=== PATIENT | male | born 1965 | race American Indian/Alaskan Native ===

== ENCOUNTER 2020-07-09 16:03 | Emergency (ER) | payer SELFPAY ==
--- NOTE | 2020-07-09 17:00 | Emergency Department Report ---
ED General Adult HPI - General Chief complaint: Arrhythmia/Palpitations Stated complaint: My defibrillator went off 5 time PUI?: No Time Seen by Provider: 07/09/20 16:42 Source: patient, EMS (Verbal report received from emergency medical services. EMS documentation not available at time of chart dictation ), RN notes reviewed Mode of arrival: Stretcher Limitations: No Limitations - History of Present Illness Initial comments: The patient was evaluated in the emergency department for symptoms described in the history of present illness. He/she was evaluated in the context of the global COVID-19 pandemic, which necessitated consideration that the patient might be at risk for infection with the virus that causes COVID-19. Institutional protocols and algorithms that pertain to the evaluation of patients at risk for COVID-19 are in a state of rapid change based on information released by regulatory bodies including the CDC and federal and state organizations. These policies and algorithms were followed during the mark delgado's care in the emergency department. Please note that these policies, procedures and recommendations changed on a rapid basis. Tear Down Man: Dr. Tyree Acosta Patient is a 55-year-old gentleman, with a history of [employer] defibrillator in situ, placed in 2018, history of SVT status post ablation, currently on Xarelto, for unclear reasons, sarcoid, hypertension, high cholesterol and diabetes. Patient is brought to the hospital today with EMS with a complaint of feeling like his defibrillator has gone off at least 4 or 5 times. The patient endorses compliance with his medications, which include sotalol. He does not take digoxin. He reports that he was in his usual state of health today, washing his car, when he heard the siren or alarm go off in his defibrillator. He reports that prior to this, he was not having any symptoms. He specifically denies antecedent headache, neck pain, chest pain, abdominal pain, shortness of breath, loss of taste and smell. Shortly thereafter, he felt like he was shocked. He also reports that he felt like his heart was racing. He believes he received 4 or 5 shocks in total. He feels like he is back to his baseline at this time. He denies dietary indiscretions, and endorses medication compliance. He has some discomfort over his defibrillator site, but otherwise, denies chest pain, vomiting, diaphoresis, urinary symptoms. -: Sudden Consistency: intermittent Improves with: none Worsens with: none Associated Symptoms: denies other symptoms, other (Palpitations) - Related Data Home Medications Medication Instructions Recorded Confirmed Last Taken Insulin Glargine [Lantus] 40 units SQ QHS 06/12/14 06/12/14 06/11/14 metFORMIN [Glucophage] 1,000 mg PO BID 06/12/14 06/12/14 06/12/14 Previous Rx's Medication Instructions Recorded Last Taken Type Acetaminophen/Codeine 1 tab PO Q6H PRN #14 tab 06/12/14 Unknown Rx [Acetaminophen-Codeine #3 TAB] Cyclobenzaprine [Flexeril 10mg] 10 mg PO BID PRN #10 tablet 06/12/14 Unknown Rx Ibuprofen [Motrin 600 MG tab] 600 mg PO Q8H PRN #10 tablet 06/12/14 Unknown Rx predniSONE [Prednisone] 30 mg PO QDAY #3 day 06/12/14 Unknown Rx Allergies Allergy/AdvReac Type Severity Reaction Status Date / Time Penicillins Allergy Intermediate Vomiting Verified 06/12/14 09:29 ED Review of Systems ROS: Stated complaint: DEFIBRILLATOR GOING OFF Other details as noted in HPI Constitutional: other (Denies loss of taste and smell). denies: fever, malaise, weakness Eyes: denies: eye discharge ENT: denies: epistaxis Respiratory: denies: cough, shortness of breath Cardiovascular: palpitations. denies: chest pain Gastrointestinal: denies: nausea, vomiting, diarrhea Genitourinary: denies: dysuria Musculoskeletal: denies: back pain Neurological: denies: weakness Psychiatric: anxiety Hematological/Lymphatic: denies: easy bleeding ED Past Medical Hx - Past Medical History Hx Diabetes: Yes (type II) Additional medical history: chronic back pain - Surgical History Additional Surgical History: back surgery 10/09/12 - Social History Smoking Status: Never Smoker Substance Use Type: None - Medications Home Medications: Home Medications Medication Instructions Recorded Confirmed Last Taken Type Acetaminophen/Codeine 1 tab PO Q6H PRN #14 tab 06/12/14 Unknown Rx [Acetaminophen-Codeine #3 TAB] Cyclobenzaprine [Flexeril 10mg] 10 mg PO BID PRN #10 tablet 06/12/14 Unknown Rx Ibuprofen [Motrin 600 MG tab] 600 mg PO Q8H PRN #10 tablet 06/12/14 Unknown Rx Insulin Glargine [Lantus] 40 units SQ QHS 06/12/14 06/12/14 06/11/14 History metFORMIN [Glucophage] 1,000 mg PO BID 06/12/14 06/12/14 06/12/14 History predniSONE [Prednisone] 30 mg PO QDAY #3 day 06/12/14 Unknown Rx ED Physical Exam - General Limitations: No Limitations General appearance: alert, in no apparent distress - Head Head exam: Present: atraumatic, normocephalic - Eye Eye exam: Present: normal appearance, EOMI. Absent: nystagmus - ENT ENT exam: Present: normal exam, normal orophraynx, mucous membranes moist, normal external ear exam - Neck Neck exam: Present: normal inspection, full ROM. Absent: tenderness, meningismus - Respiratory Respiratory exam: Present: normal lung sounds bilaterally. Absent: respiratory distress, wheezes, rales, rhonchi, stridor, decreased breath sounds - Cardiovascular Cardiovascular Exam: Present: normal rhythm, tachycardia, normal heart sounds. Absent: bradycardia, irregular rhythm, systolic murmur, diastolic murmur, rubs, gallop - GI/Abdominal GI/Abdominal exam: Present: soft. Absent: distended, tenderness, guarding, rebound, rigid, pulsatile mass - Rectal Rectal exam: Present: deferred - Extremities Exam Extremities exam: Present: normal inspection, full ROM, other (2+ pulses noted in the bilateral upper and lower extremities. There is no palpable cord. negative Homans sign. Muscular compartments are soft. The pelvis is stable.). Absent: pedal edema, calf tenderness - Back Exam Back exam: Present: normal inspection, full ROM. Absent: tenderness, CVA tenderness (R), CVA tenderness (L), paraspinal tenderness, vertebral tenderness - Neurological Exam Neurological exam: Present: alert, other (No facial droop. Tongue midline. Ex traocular movements intact bilaterally. Facial sensation intact to light touch in V1, V2, V3 distribution bilaterally. 5 and a 5 strength in 4 extremities. Sensation intact to light touch in 4 extremities.) - Psychiatric Psychiatric exam: Present: anxious - Skin Skin exam: Present: warm, dry, intact, normal color. Absent: rash ED Course Vital Signs 07/09/20 07/09/20 17:16 19:24 Temperature 98.2 F Pulse Rate 97 H Respiratory 18 Rate Blood Pressure 142/87 O2 Sat by Pulse 97 Oximetry O2 Sat by Pulse 99 Oximetry [ Digit-Finger] - Reevaluation(s) Reevaluation #1: 07/09/20 17:46 Differential diagnosis, including not limited to: SVT, A. fib, A-flutter, ventricular ectopy Electrolyte derangement, thyroid derangement Assessment and plan: 55-year-old gentleman, who is currently on Xarelto, who is not currently tachycardic, tachypneic or hypoxic, who denies DVT and pulmonary embolism risk factors, with a GCS of 15, low risk by Wells criteria for pulmonary embolism, who endorses compliance with medications, with a primary complaint of defibrillator going off 4-5 times. We will check appropriate laboratory studies, EKG, x-ray of the chest. We have reached out to [employer] device automobile sales representative on-call, and have requested emergent device interrogation. Patient denies Covid symptoms. I have explained this plan of care to the patient. He has verbalized understanding, and articulated understanding. He is currently resting comfortably, on his stretcher, talking on his cellular phone, and he does not appear to be in any acute distress. 07/09/20 18:23 Patient in no acute distress. Laboratory studies appreciated. Hypomagnesemia will be addressed. X-ray the chest is pending. Device interrogation is pending at this time. 07/09/20 18:45 Remainder of laboratory studies unremarkable. We are currently awaiting device interrogation. Patient updated on plan of care. He is in no acute distress. X-ray of the chest unremarkable. Reevaluation #2: 07/09/20 18:57 [employer] device automobile sales representative is here at this time. Patient did have episodes of sinus tachycardia, 140, she is suspicious for T wave oversensing. However, the patient did not have a malignant arrhythmia otherwise. Patient currently in sinus, and in no acute distress. 07/09/20 19:21 Final reassessment. Patient in no acute distress. I am not able to get in touch with patient's primary electroless plater, Dr. Tyree Acosta. I contacted the [employer] [facility], and they informed her that the patient does not have [employer] insurance. The patient states he is on an affordable care plan, ass ociated with [employer]. However, I would like to speak to his electroless plater as a courtesy. I do not have a clinical question for her. Patient remains in sinus rhythm. His ICD has been reprogrammed by the [employer] automobile sales representative. As a courtesy, I did offer to speak to my cardiology group on- call for this patient, to arrange close outpatient follow-up, but the patient declined. He states he will be able to get in touch with his electroless plater, and arrange follow-up for Saturday. Patient remains awake, alert, oriented, sober, exhibits decision-making capacity and is free from distracting injury. We have come to this plan together, through shared decision making. Return precautions are reviewed. Patient has articulated understanding. - Consultations Consultation #1: 07/09/20 19:27 Patient's electroless plater, Dr. Acosta, has called me back. I have discussed the patient's history, physical, laboratory studies and EKG findings, and she advises that follow-up within a week would be reasonable, and she is in agreement with this plan of care. Patient updated, and he is agreeable to this plan of care. - Pulse Oximetry Interpretation Digit-Finger Initial Pulse Oximetry Readin O2 Sat by Pulse Oximetry: 99 Actions Taken: none ED Medical Decision Making - Lab Data Result diagrams: 07/09/20 17:20 07/09/20 17:20 Vital Signs 07/09/20 07/09/20 17:16 18:17 Temperature 98.2 F Pulse Rate 97 H Respiratory 18 Rate Blood Pressure 142/87 O2 Sat by Pulse 97 Oximetry O2 Sat by Pulse 99 Oximetry [ Digit-Finger] Lab Results 07/09/20 07/09/20 07/09/20 Range/Units 17:20 17:20 17:20 WBC 5.6 (4.5-11.0) K/mm3 RBC 4.25 (3.65-5.03) M/mm3 Hgb 14.3 (11.8-15.2) gm/dl Hct 41.5 (35.5-45.6) % MCV 98 H (84-94) fl MCH 34 H (28-32) pg MCHC 35 H (32-34) % RDW 14.0 (13.2-15.2) % Plt Count 174 (140-440) K/mm3 Lymph % (Auto) 28.4 (13.4-35.0) % Whitfield % (Auto) 10.6 H (0.0-7.3) % Eos % (Auto) 0.9 (0.0-4.3) % Baso % (Auto) 0.9 (0.0-1.8) % Lymph # (Auto) 1.6 (1.2-5.4) K/mm3 Whitfield # (Auto) 0.6 (0.0-0.8) K/mm3 Eos # (Auto) 0.1 (0.0-0.4) K/mm3 Baso # (Auto) 0.1 (0.0-0.1) K/mm3 Seg Neutrophils % 59.2 (40.0-70.0) % Seg Neutrophils # 3.3 (1.8-7.7) K/mm3 PT 13.1 (12.2-14.9) Sec. INR 1.01 (0.87-1.13) APTT 28.4 (24.2-36.6) Sec. Sodium 135 L (137-145) mmol/L Potassium 4.0 (3.6-5.0) mmol/L Chloride 98.3 (98-107) mmol/L Carbon Dioxide 27 (22-30) mmol/L Anion Gap 14 mmol/L BUN 14 (9-20) mg/dL Creatinine 1.0 (0.8-1.3) mg/dL Estimated GFR > 60 ml/min BUN/Creatinine Ratio 14 % Glucose 272 H (75-100) mg/dL Calcium 9.1 (8.4-10.2) mg/dL Magnesium 1.60 L (1.7-2.3) mg/dL Total Bilirubin 0.50 (0.1-1.2) mg/dL AST 36 (5-40) units/L ALT 52 (7-56) units/L Alkaline Phosphatase 140 H (35-129) units/L Total Creatine Kinase 152 (55-170) units/L Troponin T (0.00-0.029) ng/mL Total Protein 7.0 (6.3-8.2) g/dL Albumin 4.1 (3.9-5) g/dL Albumin/Globulin Ratio 1.4 % // Range/Units 17:20 WBC (4.5-11.0) K/mm3 RBC (3.65-5.03) M/mm3 Hgb (11.8-15.2) gm/dl Hct (35.5-45.6) % MCV (84-94) fl MCH (28-32) pg MCHC (32-34) % RDW (13.2-15.2) % Plt Count (140-440) K/mm3 Lymph % (Auto) (13.4-35.0) % Whitfield % (Auto) (0.0-7.3) % Eos % (Auto) (0.0-4.3) % Baso % (Auto) (0.0-1.8) % Lymph # (Auto) (1.2-5.4) K/mm3 Whitfield # (Auto) (0.0-0.8) K/mm3 Eos # (Auto) (0.0-0.4) K/mm3 Baso # (Auto) (0.0-0.1) K/mm3 Seg Neutrophils % (40.0-70.0) % Seg Neutrophils # (1.8-7.7) K/mm3 PT (12.2-14.9) Sec. INR (0.87-1.13) APTT (24.2-36.6) Sec. Sodium (137-145) mmol/L Potassium (3.6-5.0) mmol/L Chloride (98-107) mmol/L Carbon Dioxide (22-30) mmol/L Anion Gap mmol/L BUN (9-20) mg/dL Creatinine (0.8-1.3) mg/dL Estimated GFR ml/min BUN/Creatinine Ratio % Glucose (75-100) mg/dL Calcium (8.4-10.2) mg/dL Magnesium (1.7-2.3) mg/dL Total Bilirubin (0.1-1.2) mg/dL AST (5-40) units/L ALT (7-56) units/L Alkaline Phosphatase (35-129) units/L Total Creatine Kinase (55-170) units/L Troponin T 0.014 (0.00-0.029) ng/mL Total Protein (6.3-8.2) g/dL Albumin (3.9-5) g/dL Albumin/Globulin Ratio % - EKG Data -: EKG Interpreted by Ga EKG shows normal: sinus rhythm Rate: tachycardia - EKG Data When compared to previous EKG there are: no significant change Interpretation: unchanged when compared t (2017) 07/09/20 17:48 EKG interpreted at 17: 10 Sinus rhythm, 98 bpm, normal axis/borderline leftward axis deviation, left ventricular hypertrophy, intervals within normal limits with the exception of CT interval, there is a first-degree AV block. This EKG is abnormal. The EKG is not a STEMI. 07/09/20 17:49 The EKG today is unchanged from prior EKG from 2017 - Radiology Data Radiology results: pending, image reviewed interpreted by me: X-ray of the chest, interpreted by myself, negative for acute findings. ICD in situ. Clear lungs. Bony structures appear to be unremarkable. Critical care attestation.: If time is entered above; I have spent that time in minutes in the direct care of this critically ill patient, excluding procedure time. ED Disposition Clinical Impression: Cardiac defibrillator in situ, First degree AV block, Defibrillator discharge, History of prior ablation treatment, Hypomagnesemia, History of tachycardia Disposition: DC-01 TO HOME OR SELFCARE Is pt being admited?: No Does the pt Need Aspirin: No Condition: Good Instructions: Hypomagnesemia Additional Instructions: Please continue current outpatient medications. Take the magnesium as directed. Avoid consumption of caffeine, alcohol, tobacco, and smoke products. Please follow-up with a electroless plater within the next 2 to 3 days. For the patient's convenience, we have provided contact information for [facility], which is a local cardiology practice. Avoid excessively strenuous physical activities. Please return to the emergency room right away with new pain, worsened pain, migration of pain, projectile vomiting, change in mental status, confusion, inability to tolerate liquid feeds, new, worsened or different symptoms not present on the initial emergency room evaluation. Patient may participate in gentle physical activity as tolerated. Referrals: [facility] [Provider Group] - 3-5 Days
[2020-07-09 17:51] LABS: Basophils # (Auto) 0.1 K/mm3 (0.0-0.1); Basophils % (Auto) 0.9 % (0.0-1.8); Eosinophils # (Auto) 0.1 K/mm3 (0.0-0.4); Eosinophils % (Auto) 0.9 % (0.0-4.3); Hematocrit 41.5 % (35.5-45.6); Hemoglobin 14.3 gm/dl (11.8-15.2); Lymphocytes # (Auto) 1.6 K/mm3 (1.2-5.4); Lymphocytes % (Auto) 28.4 % (13.4-35.0); Mean Corpuscular HGB Conc 35 % (32-34); Mean Corpuscular Volume 98 fl (84-94); Monocytes # (Auto) 0.6 K/mm3 (0.0-0.8); Monocytes % (Auto) 10.6 % (0.0-7.3); Platelet Count 174 K/mm3 (140-440); Red Blood Count 4.25 M/mm3 (3.65-5.03)
[2020-07-09 18:01] LABS: INR 1.01 (0.87-1.13)
[2020-07-09 18:02] LABS: Partial Thromboplastin Time 28.4 Sec. (24.2-36.6)
[2020-07-09 18:12] LABS: Alanine Aminotransferase 52 units/L (7-56); Albumin 4.1 g/dL (3.9-5); BUN/Creatinine Ratio 14; Blood Urea Nitrogen 14 mg/dL (9-20); Calcium 9.1 mg/dL (8.4-10.2); Hemolysis Index 11
[2020-07-09] MEDS ORDERED: MAGNESIUM SULFATE 2 GM/50 ML BAG IV ONE (18:16)
--- NOTE | 2020-07-09 18:55 | XRay Report ---
CHEST 1 VIEW 07/09/2020 6:10 PM INDICATION / CLINICAL INFORMATION: Dysrhythmia. COMPARISON: None available. FINDINGS: SUPPORT DEVICES: Cardiac pacer leads are satisfactory in position HEART / MEDIASTINUM: No significant abnormality. LUNGS / PLEURA: No significant pulmonary or pleural abnormality. No pneumothorax. ADDITIONAL FINDINGS: No significant additional findings. IMPRESSION: 1. No acute findings. Signer Name: Solomon Levine MD Signed: 07/09/2020 6:50 PM Workstation Name: [id number]
[2020-07-09] MEDS ORDERED: MAGNESIUM OXIDE 400 MG TAB PO STA (19:20)
[2020-07-09 19:54] VITALS: BP 147/98
== END 2020-07-09 20:10 | disposition home or self-care (01) ==
LOC: ED 16:03
DX: I44.0 Atrioventricular block, first degree (principal); E83.42 Hypomagnesemia; Z95.810 Presence of automatic (implantable) cardiac defibrillator; Z45.02 Encounter for adjustment and management of automatic implantable cardiac defibrillator; Z87.898 Personal history of other specified conditions; Z88.0 Allergy status to penicillin; Z79.899 Other long term (current) drug therapy; Z98.890 Other specified postprocedural states
CPT/HCPCS: 36415; 71045; 80053; 82550; 83735; 84443; 84484; 85025; 85610; 85730; 93005; J3475

== ENCOUNTER 2021-08-07 09:22 | Emergency (ER) | payer OTHER ==
[2021-08-07 09:39] VITALS: BP 131/74
--- NOTE | 2021-08-07 11:50 | Emergency Department Report ---
ED Upper Extremity Inj HPI - General Chief Complaint: Extremity Problem,Nontraumatic Stated Complaint: PAIN RIGHT BICEP Time Seen by Provider: 08/07/21 09:48 Source: patient Mode of arrival: Ambulatory Limitations: No Limitations - History of Present Illness Initial Comments: Patient is 56-year-old male that comes to the emergency room with right bicep pain. He states that he does lift weights. He denies any known injury, popping sensation, pull or other strain. [facility] and they told him to come to the emergency room because they could not get him in for several days. Patient is ambulatory and neurologically intact on arrival. I am able to reproduce the muscle pain with movement. Pain is worse with extension of the right arm. Bicep appears to be intact/patti appropriately. Complaint: Injury to:: right -: Gradual, days(s) Other Extremity Injury: Arm: Right Other Injuries: none Handedness: right Place: home Improves With: immobilization Worsens With: movement of extremity Associated Symptoms: denies other symptoms - Related Data Home Medications Medication Instructions Recorded Confirmed Last Taken Insulin Glargine [Lantus] 40 units SQ QHS 06/12/14 06/12/14 06/11/14 metFORMIN [Glucophage] 1,000 mg PO BID 06/12/14 06/12/14 06/12/14 Previous Rx's Medication Instructions Recorded Last Taken Type predniSONE [Prednisone] 30 mg PO QDAY #3 day 06/12/14 Unknown Rx Magnesium Oxide 400 mg PO QDAY #30 tablet 07/09/20 Unknown Rx Ibuprofen [Motrin] 800 mg PO Q8HR PRN #30 tablet 08/07/21 Unknown Rx Allergies Allergy/AdvReac Type Severity Reaction Status Date / Time Penicillins Allergy Intermediate Vomiting Verified 06/12/14 09:29 ED Review of Systems ROS: Stated complaint: PAIN RIGHT BICEP Other details as noted in HPI Comment: All other systems reviewed and negative ED Past Medical Hx - Past Medical History Previous Medical History?: Yes Hx Diabetes: Yes (type II) Additional medical history: chronic back pain - Surgical History Past Surgical History?: Yes Hx Pacemaker: Yes Hx Internal Defibrillator: Yes Additional Surgical History: back surgery 10/09/12 - Family History Family history: no significant - Social History Smoking Status: Never Smoker Substance Use Type: None - Medications Home Medications: Home Medications Medication Instructions Recorded Confirmed Last Taken Type Insulin Glargine [Lantus] 40 units SQ QHS 06/12/14 06/12/14 06/11/14 History metFORMIN [Glucophage] 1,000 mg PO BID 06/12/14 06/12/14 06/12/14 History predniSONE [Prednisone] 30 mg PO QDAY #3 day 06/12/14 Unknown Rx Magnesium Oxide 400 mg PO QDAY #30 tablet 07/09/20 Unknown Rx Ibuprofen [Motrin] 800 mg PO Q8HR PRN #30 tablet 08/07/21 Unknown Rx ED Physical Exam - General Limitations: No Limitations General appearance: alert, in no apparent distress - Head Head exam: Present: atraumatic, normocephalic - Eye Eye exam: Present: normal appearance - ENT ENT exam: Present: mucous membranes moist - Neck Neck exam: Present: normal inspection - Respiratory Respiratory exam: Present: normal lung sounds bilaterally. Absent: respiratory distress - Cardiovascular Cardiovascular Exam: Present: regular rate, normal rhythm, other (Heart rate 88 on exam). Absent: systolic murmur, diastolic murmur, rubs, gallop - GI/Abdominal GI/Abdominal exam: Present: soft, normal bowel sounds - Rectal Rectal exam: Present: deferred - Extremities Exam Extremities exam: Present: normal inspection - Expanded Upper Extremity Exam Right General: Present: normal inspection Shoulder Exam: Present: normal inspection Upper Arm exam: Present: normal inspection Elbow exam: Present: normal inspection Forearm Wrist exam: Present: normal inspection Hand Wrist exam: Present: normal inspection - Back Exam Back exam: Present: normal inspection - Neurological Exam Neurological exam: Present: alert, oriented X3 - Psychiatric Psychiatric exam: Present: normal affect, normal mood - Skin Skin exam: Present: warm, dry, intact, normal color. Absent: rash ED Course Vital Signs 08/07/21 09:38 Temperature 97.8 F Pulse Rate 104 H Respiratory 16 Rate Blood Pressure 131/74 O2 Sat by Pulse 99 Oximetry ED Medical Decision Making - Radiology Data Radiology results: report reviewed, image reviewed No bony fracture - Medical Decision Making Vital Signs 08/07/21 09:38 Temperature 97.8 F Pulse Rate 104 H Respiratory 16 Rate Blood Pressure 131/74 O2 Sat by Pulse 99 Oximetry Patient is neurovascularly intact. He has full range of motion of the shoulder elbow wrist and hand. He has rapid cap refill. Ulnar and radial pulses intact. Ulnar and radial nerve intact. All compartments are soft. Patient is diabetic. His blood sugar this morning was 112 Patient medicated with Ultram in the ER. On discharge exam patient reports feeling better. He denies any chest pain or shortness of breath. He has full range of motion on discharge. [facility] He is requesting a sling for his arm. I have educated him on disuse injuries. I gave him a sling but told him he should only use it for 24 hours. Patient being discharged home with discharge plan of care including diet, activity, medications and follow-up. - Differential Diagnosis Muscle strain versus fracture Critical care attestation.: If time is entered above; I have spent that time in minutes in the direct care of this critically ill patient, excluding procedure time. ED Disposition Clinical Impression: History of diabetes mellitus Biceps strain Qualifiers: Encounter type: initial encounter Laterality: right Qualified Code(s): S46.211A - Strain of muscle, fascia and tendon of other parts of biceps, right arm, initial encounter Disposition: HOME / SELF CARE / HOMELESS Is pt being admited?: No Does the pt Need Aspirin: No Condition: Stable Instructions: Muscle Strain, [id number] Additional Instructions: warm compresses med as ordered for pain follow up with ortho eunice referral below Prescriptions: Ibuprofen [Motrin] 800 mg PO Q8HR PRN #30 tablet PRN Reason: Pain, Moderate (4-6) Referrals: TENNILLE MARIA MD [Staff Physician] - 3-5 Days MACKENZIE REDD MD [Staff Physician] - 3-5 Days Time of Disposition: 11:55
[2021-08-07] MEDS ORDERED: traMADol 50 MG TAB PO ONE (11:53)
--- NOTE | 2021-08-07 15:59 | XRay Report ---
RIGHT HUMERUS 2 VIEWS INDICATION / CLINICAL INFORMATION: Right arm pain since this morning without known injury. COMPARISON: None available. FINDINGS: BONES / JOINT(S): There is no evidence of fracture or subluxation or destructive lesion. No significa nt arthritis. SOFT TISSUES: No significant abnormality. ADDITIONAL FINDINGS: None. IMPRESSION: No acute findings. Signer Name: Arcenio Parra MD Signed: 08/07/2021 3:54 PM Workstation Name: [id number]
== END 2021-08-07 12:27 | disposition home or self-care (01) ==
LOC: ED 09:22
DX: S46.211A Strain of muscle, fascia and tendon of other parts of biceps, right arm, initial encounter (principal); E11.9 Type 2 diabetes mellitus without complications; G89.29 Other chronic pain; Z79.899 Other long term (current) drug therapy; X50.1XXA Overexertion from prolonged static or awkward postures, initial encounter; Y93.89 Activity, other specified; Y92.89 Other specified places as the place of occurrence of the external cause; Y99.8 Other external cause status
CPT/HCPCS: 99283